=== PATIENT | male | born 1985 | race Caucasian/White ===

== ENCOUNTER 2020-10-14 17:52 | Emergency (ER) | payer OTHER ==
[2020-10-14] MEDS ORDERED: AUGMENTIN 875-1 EACH PO (18:51)
== END 2020-10-14 20:36 | disposition home or self-care (01) ==
LOC: FER 17:52
DX: S51.851A Open bite of right forearm, initial encounter (principal); S51.852A Open bite of left forearm, initial encounter; W54.0XXA Bitten by dog, initial encounter; Y92.009 Unspecified place in unspecified non-institutional (private) residence as the place of occurrence of the external cause
CPT/HCPCS: 73090